=== PATIENT | female | born 1940 | race Caucasian/White ===

== ENCOUNTER → 2018-07-25 12:04 | Outpatient (CLI) | payer MEDICARE, OTHER, SELFPAY ==
--- NOTE | 2018-07-25 | DI.CT.S_ITS ---
PROCEDURE: CT HEAD/BRAIN WO CON INDICATIONS: DYSPNEA TECHNIQUE: Noncontrast 4.5 mm thick angled axial sections acquired from the foramen magnum to the vertex, with coronal and sagittal reformats. For radiation dose reduction, the following was used: automated exposure control, adjustment of mA and/or kV according to patient size. COMPARISON: None. FINDINGS: Image quality: Excellent. CSF spaces: Basal cisterns are patent. No extra-axial fluid collections. The ventricles are symmetric in size and shape. Brain: No intracranial bleeds or masses. There is cerebral volume loss for age, with resultant ventricular and sulcal prominence. There are periventricular and deep white matter chronic small vessel ischemic changes. There is intracranial internal carotid artery atherosclerosis. Skull and face: Calvarium and visualized facial bones appear intact, without suspicious lesions. Sinuses: Visualized sinuses and mastoids are clear. IMPRESSION: Normal head CT for age. Dictated by: Adarsh Plummer M.D. on 07/25/2018 at 11:36 Approved by: Adarsh Plummer M.D. on 07/25/2018 at 11:37
== END ==
PROVIDERS: Visit Provider Physician Assistant
DX: R06.00 Dyspnea, unspecified (principal); R55 Syncope and collapse
CPT/HCPCS: 70450

== ENCOUNTER → 2018-12-16 10:57 | Outpatient (CLI) | payer MEDICARE, OTHER, SELFPAY ==
[2018-12-16 12:52] LABS: Alanine Aminotransferase 30 IU/L (9-52); Albumin 4.3 g/dL (3.5-5.0); Albumin Globulin Ratio 1.3 (1.0-2.8); Alkaline Phosphatase 82 U/L (38-126); Aspartate Aminotransferase 34 IU/L (14-36); BUN Creatinine Ratio 21.4 (6-22); Bilirubin Total 0.8 mg/dL (0.2-1.3); Blood Urea Nitrogen 15 mg/dL (7-17); Calcium 9.2 mg/dL (8.4-10.2); Carbon Dioxide 26 mmol/L (22-32); Chloride 103 mmol/L (98-107); Cholesterol 162 mg/dL (140-199); Estimated Glomerular Filt Rate > 60.0 mL/min (>60); Globulin 3.2 g/dL (1.7-4.1); Glucose 87 mg/dL (80-110); HDL Cholesterol 69 mg/dL (40-60); HEMOLYSIS < 15 (0-50); LDL Cholesterol Calculated 77 mg/dL (<100); Potassium 4.1 mmol/L (3.4-5.1); Sodium 139 mmol/L (137-145); Total Protein 7.5 g/dL (6.3-8.2); Triglycerides 80 mg/dL (35-150)
== END ==
PROVIDERS: Visit Provider Internal Medicine
DX: E78.5 Hyperlipidemia, unspecified (principal)
CPT/HCPCS: 36415; 80053; 80061

== ENCOUNTER 2021-05-30 12:08 | Emergency (ER) | payer MEDICARE, OTHER, SELFPAY ==
[2021-05-30] VITALS (47 sets, daily range): BP systolic 106–156; BP diastolic 63–108; PULSE 47–139; RESP 16–32; TEMP 36.6; O2SAT 92–100; BMI 21.2
--- NOTE | 2021-05-30 12:25 | DI.RAD.S_ITS ---
PROCEDURE: XR CHEST 1V INDICATIONS: shortness of breath TECHNIQUE: One view of the chest was acquired. COMPARISON: [facility], CR, XR CHEST 2 VIEWS, 11/15/2018, 6:46. FINDINGS: Surgical changes and devices: There is a cardiac pacemaker in appropriate position. Lungs and pleura: Small pleural effusions are present bilaterally. There are bibasilar consolidations or atelectasis. Mediastinum: Mediastinal contours appear normal. Heart size is normal. Bones and chest wall: No suspicious bony lesions. Overlying soft tissues appear unremarkable. IMPRESSION: Small pleural effusions with bibasilar consolidations or atelectasis. Dictated by: Jennifer Caputo M.D. on 05/30/2021 at 13:15 Approved by: Jennifer Caputo M.D. on 05/30/2021 at 13:16
[2021-05-30 12:51] LABS: COVID19 -Nasal RAPID Negative (Negative)
[2021-05-30 12:59] LABS: INR 1.6 (0.9-1.3); Prothrombin Time 17.9 SECONDS (10.1-12.7)
[2021-05-30 13:01] LABS: PTT Partial Thromboplastin Tim 36 SECONDS (26.4-36.2)
[2021-05-30 13:03] LABS: Alanine Aminotransferase 42 IU/L (<35); Albumin 3.8 g/dL (3.5-5.0); Albumin Globulin Ratio 1.3 (1.0-2.8); Alkaline Phosphatase 83 U/L (38-126); Aspartate Aminotransferase 52 IU/L (14-36); BUN Creatinine Ratio 18.2 (6-22); Bilirubin Total 1.2 mg/dL (0.2-1.3); Blood Urea Nitrogen 14 mg/dL (7-17); Calcium 9.3 mg/dL (8.4-10.2); Carbon Dioxide 26 mmol/L (22-32); Chloride 105 mmol/L (98-107); Estimated Glomerular Filt Rate > 60.0 mL/min (>60); Globulin 2.9 g/dL (1.7-4.1); Glucose 97 mg/dL (80-110); HEMOLYSIS 19 (0-50); Lactate (Lactic Acid) 1.5 mmol/L (0.7-2.1); Potassium 4.6 mmol/L (3.4-5.1); Sodium 138 mmol/L (137-145); Total Protein 6.7 g/dL (6.3-8.2)
[2021-05-30 13:11] LABS: Add Manual Diff / Slide Review NO; Basophils Absolute Auto 100 /uL (0-100); Basophils Percent Auto 1.1 % (0-2); Eosinophils Absolute Auto 100 /uL (0-450); Eosinophils Percent Auto 1.2 % (2-4); Hematocrit 47.1 % (36-46); Lymphocytes Absolute Auto 2200 /uL (1100-4500); Lymphocytes Percent Auto 32.1 % (25-40); Mean Corpuscular Hemoglobin 30.1 PG (26-34); Mean Corpuscular Volume 94.2 fL (80-100); Monocytes Absolute Auto 700 /uL (0-900); Monocytes Percent Auto 9.8 % (3-14); Neutrophils Absolute Auto 3800 /uL (1500-7000); Neutrophils Percent Auto 55.8 % (50-75); Platelet Count 225 X10^3/uL (150-400); White Blood Cell Count 6.9 X10^3/uL (4.5-11.0)
[2021-05-30 13:12] LABS: NT-proBNP (BNP-Adult 18+) 10000 pg/mL (<450)
--- NOTE | 2021-05-30 14:17 | ED_ITS ---
HPI - SOB/Dyspnea <Alex Willingham PA-C - Last Filed: 05/31/21 12:08> General Chief Complaint: Shortness of Breath/Dyspnea Stated Complaint: sob Time Seen by Provider: 05/30/21 13:46 Source: patient Mode of arrival: Ambulatory Limitations: no limitations History of Present Illness HPI Narrative: Patti presents today with chief complaint of worsening shortness of breath with exertion that has been persistent for the last few weeks. She has past medical history significant for paroxysmal atrial fibrillation, sick sinus syndrome with dual chamber pacemaker in place, and she has and anticoa gulated on Eliquis 5 mg b.i.d.. She has been taking this as prescribed. In early April she flipped into atrial fibrillation and has had shortness of breath with exertion since that time. She had an appointment in late April with her linoleum installer Dr. Chavez at [facility]. He ordered a echocardiogram which showed significant decreased LV function with an estimated LV EF of 25- 30%. This was a significant decrease since her prior which showed normal EF. One week ago she had a scheduled direct current electronic cardioversion which was reported as successful in the procedure note. She reports that she did not have any benefit symptomatic leave from the cardioversion and has been p ersistently short of breath on exertion since this occurred. She denies any significant episode of chest pain but has noted that her lower legs have started to become more swollen. She has had a persistent cough for the last 3 months also. Related Data Previous Rx's Medication Instructions Recorded furosemide 20 mg tablet 20 mg PO QAM 7 Days #7 tab 05/30/21 potassium chloride 10 mEq 10 meq PO DAILY 7 Days #7 cap 05/30/21 capsule,extended release Allergies Allergy/AdvReac Type Severity Reaction Status Date / Time No Known Drug Allergies Allergy Verified 05/30/21 12:26 Patient History <Alex Willingham PA-C - Last Filed: 05/31/21 12:08> Social History Smoking Status: Unknown if ever smoked Smoking Status: Unknown if ever smoked alcohol intake frequency: holidays/special occasions only Substance Use Type: does not use Exam <Alex Willingham PA-C - Last Filed: 05/31/21 12:08> Narrative Exam Narrative: Exam Narrative: Const General: cooperative, healthy appearing, comfortable, no acute distress, well developed and well groomed Nutritional Appearance: average body habitus Orientation: alert and oriented x3 HENMT Head: normal to inspection and atraumatic Ears: hearing grossly normal bilaterally Nose: external nose normal and nares normal Face and sinus: normal facial exam Neck Neck: normal visual inspection and supple Resp Effort & Inspection: normal respiratory effort, able to speak in complete sentences, no audible wheezes, not labored, no nasal flaring and no respiratory distress, clear to auscultation bilaterally Cardiac Tachycardic rate and irregularly irregular rhythm. No obvious murmurs noted. Lower extremities exposed- minimal pitting edema noted bilaterally to anterior shins. No significant calf tenderness. Neuro General: alert, oriented x3, gait normal, tone normal and moves all extremities Cognition: normal cognition Speech: speech normal Gait: normal gait Psych Appearance: grossly normal and well kempt Mental Status: mental status grossly normal Speech and Movement: speech and movement normal Mood: congruent mood Affect: normal affect Initial Vital Signs Initial Vital Signs: Vital Signs Temperature 97.8 F 05/30/21 12:16 Pulse Rate 115 H 05/30/21 12:16 Respiratory Rate 22 05/30/21 12:16 Blood Pressure 126/86 05/30/21 12:16 Pulse Oximetry 100 05/30/21 12:16 <Rob Gustafson DO - Last Filed: 05/31/21 18:56> Initial Vital Signs Initial Vital Signs: Vital Signs Temperature 97.8 F 05/30/21 12:16 Pulse Rate 115 H 05/30/21 12:16 Respiratory Rate 22 05/30/21 12:16 Blood Pressure 126/86 05/30/21 12:16 Pulse Oximetry 100 05/30/21 12:16 Course <Alex Willingham PA-C - Last Filed: 05/31/21 12:08> Course Course Narrative: I spoke with Dr. Gtz with [facility]. We discussed this patient's presentation, workup and her history. He recommended cardioversion here in the emergency department. She would be appropriate to discharge home even if cardioversion fails. He recommended increasing her metoprolol to 50 mg b.i.d. for rate management, potassium 10 mg daily, furosemide 20 mg daily, and 400 mg of magnesium oxide. Orders Ordered: Discontinued Medications Furosemide (Furosemide 40 Mg/4 Ml Vial) 40 mg IV NOW ONE Stop: 05/30/21 15:29 Last Admin: 05/30/21 16:11 Dose: 40 mg Documented by: DAVID Metoprolol Tartrate (Metoprolol Tartrate 5 Mg/5 Ml Inj) 5 mg IV NOW ONE Stop: 05/30/21 15:29 Last Admin: 05/30/21 16:11 Dose: 5 mg Documented by: DAVID Propofol (Propofol 200 Mg/20 Ml Vial) 60 mg 1 mg/kg (60 mg) IV NOW ONE Stop: 05/30/21 19:25 Last Admin: 05/30/21 19:55 Dose: 45 mg Documented by: EBER Vital Signs Vital signs: Vital Signs - 8 hr 05/30/21 12:16 05/30/21 12:17 05/30/21 12:25 Temperature 97.8 F Pulse Rate 115 H 47 L 122 H Respiratory Rate 22 18 Blood Pressure 126/86 126/86 Pulse Oximetry 100 98 99 05/30/21 12:27 05/30/21 12:30 05/30/21 12:41 Temperature Pulse Rate Respiratory Rate Blood Pressure 126/86 125/93 H Pulse Oximetry 98 99 05/30/21 13:00 05/30/21 13:30 05/30/21 14:00 Temperature Pulse Rate 125 H 120 H 108 H Respiratory Rate 23 18 17 Blood Pressure 125/84 131/85 Pulse Oximetry 99 98 97 05/30/21 14:30 05/30/21 15:00 05/30/21 15:41 Temperature Pulse Rate 114 H 129 H 120 H Respiratory Rate 23 18 Blood Pressure 119/79 151/91 H Pulse Oximetry 97 97 05/30/21 15:48 05/30/21 16:00 05/30/21 16:20 Temperature Pulse Rate 134 H 119 H 113 H Respiratory Rate 21 19 19 Blood Pressure 133/101 H 127/108 H 131/103 H Pulse Oximetry 99 97 97 05/30/21 16:30 Temperature Pulse Rate 121 H Respiratory Rate 20 Blood Pressure Pulse Oximetry 96 <Rob Gustafson DO - Last Filed: 05/31/21 18:56> Orders Ordered: Discontinued Medications Furosemide (Furosemide 40 Mg/4 Ml Vial) 40 mg IV NOW ONE Stop: 05/30/21 15:29 Last Admin: 05/30/21 16:11 Dose: 40 mg Documented by: DAVID Metoprolol Tartrate (Metoprolol Tartrate 5 Mg/5 Ml Inj) 5 mg IV NOW ONE Stop: 05/30/21 15:29 Last Admin: 05/30/21 16:11 Dose: 5 mg Documented by: DAVID Propofol (Propofol 200 Mg/20 Ml Vial) 60 mg 1 mg/kg (60 mg) IV NOW ONE Stop: 05/30/21 19:25 Last Admin: 05/30/21 19:55 Dose: 45 mg Documented by: EBER Vital Signs Vital signs: Vital Signs - 8 hr 05/30/21 12:16 05/30/21 12:17 05/30/21 12:25 Temperature 97.8 F Pulse Rate 115 H 47 L 122 H Respiratory Rate 22 18 Blood Pressure 126/86 126/86 Pulse Oximetry 100 98 99 05/30/21 12:27 05/30/21 12:30 05/30/21 12:41 Temperature Pulse Rate Respiratory Rate Blood Pressure 126/86 125/93 H Pulse Oximetry 98 99 05/30/21 13:00 05/30/21 13:30 05/30/21 14:00 Temperature Pulse Rate 125 H 120 H 108 H Respiratory Rate 23 18 17 Blood Pressure 125/84 131/85 Pulse Oximetry 99 98 97 05/30/21 14:30 05/30/21 15:00 05/30/21 15:41 Temperature Pulse Rate 114 H 129 H 120 H Respiratory Rate 23 18 Blood Pressure 119/79 151/91 H Pulse Oximetry 97 97 05/30/21 15:48 05/30/21 16:00 05/30/21 16:20 Temperature Pulse Rate 134 H 119 H 113 H Respiratory Rate 21 19 19 Blood Pressure 133/101 H 127/108 H 131/103 H Pulse Oximetry 99 97 97 05/30/21 16:30 Temperature Pulse Rate 121 H Respiratory Rate 20 Blood Pressure Pulse Oximetry 96 MDM - SOB/Dyspnea <Alex Willingham PA-C - Last Filed: 05/31/21 12:08> Lab Data Result diagrams: 05/30/21 12:40 05/30/21 12:40 Labs: Lab Results 05/30/21 05/30/21 05/30/21 Range/Units 12:21 12:26 12:40 WBC 6.9 (4.5-11.0) X10^3/uL RBC 5.00 (4.0-5.2) X10^6/uL Hgb 15.0 (12.0-16.0) g/dL Hct 47.1 H (36-46) % MCV 94.2 (80-100) fL MCH 30.1 (26-34) PG MCHC 32.0 (30-36) % RDW 15.0 H (11.6-14.8) % Plt Count 225 (150-400) X10^3/uL Neut % (Auto) 55.8 (50-75) % Lymph % (Auto) 32.1 (25-40) % Clinch % (Auto) 9.8 (3-14) % Eos % (Auto) 1.2 L (2-4) % Baso % (Auto) 1.1 (0-2) % Neut # (Auto) 3800 (9907-6385) /uL Lymph # (Auto) 2200 (6950-4636) /uL Clinch # (Auto) 700 (0-900) /uL Eos # (Auto) 100 (0-450) /uL Baso # (Auto) 100 (0-100) /uL PT (10.1-12.7) SECONDS INR (0.9-1.3) APTT (26.4-36.2) SECONDS Sodium (137-145) mmol/L Potassium (3.4-5.1) mmol/L Chloride (98-107) mmol/L Carbon Dioxide (22-32) mmol/L BUN (7-17) mg/dL Creatinine (0.52-1.04) mg/dL Estimated GFR (>60) mL/min BUN/Creatinine Ratio (6-22) Glucose (80-110) mg/dL Lactate (0.7-2.1) mmol/L Calcium (8.4-10.2) mg/dL Total Bilirubin (0.2-1.3) mg/dL AST (14-36) IU/L ALT (<35) IU/L Alkaline Phosphatase (38-126) U/L Total Creatine Kinase 33 (30-135) U/L CK-MB (CK-2) TNP CK-MB (CK-2) Rel Index TNP Troponin I < 0.012 (0.01-0.034) ng/mL NT-Pro-B Natriuret Pep (<450) pg/mL Total Protein (6.3-8.2) g/dL Albumin (3.5-5.0) g/dL Globulin (1.7-4.1) g/dL Albumin/Globulin Ratio (1.0-2.8) SARS-CoV-2 (PCR) Negative (Negative) 05/30/21 05/30/21 05/30/21 Range/Units 12:40 12:40 12:40 WBC (4.5-11.0) X10^3/uL RBC (4.0-5.2) X10^6/uL Hgb (12.0-16.0) g/dL Hct (36-46) % MCV (80-100) fL MCH (26-34) PG MCHC (30-36) % RDW (11.6-14.8) % Plt Count (150-400) X10^3/uL Neut % (Auto) (50-75) % Lymph % (Auto) (25-40) % Clinch % (Auto) (3-14) % Eos % (Auto) (2-4) % Baso % (Auto) (0-2) % Neut # (Auto) (6141-4503) /uL Lymph # (Auto) (9949-1000) /uL Clinch # (Auto) (0-900) /uL Eos # (Auto) (0-450) /uL Baso # (Auto) (0-100) /uL PT 17.9 H (10.1-12.7) SECONDS INR 1.6 H (0.9-1.3) APTT 36 (26.4-36.2) SECONDS Sodium 138 (137-145) mmol/L Potassium 4.6 (3.4-5.1) mmol/L Chloride 105 (98-107) mmol/L Carbon Dioxide 26 (22-32) mmol/L BUN 14 (7-17) mg/dL Creatinine 0.77 (0.52-1.04) mg/dL Estimated GFR > 60.0 (>60) mL/min BUN/Creatinine Ratio 18.2 (6-22) Glucose 97 (80-110) mg/dL Lactate 1.5 (0.7-2.1) mmol/L Calcium 9.3 (8.4-10.2) mg/dL Total Bilirubin 1.2 (0.2-1.3) mg/dL AST 52 H (14-36) IU/L ALT 42 H (<35) IU/L Alkaline Phosphatase 83 (38-126) U/L Total Creatine Kinase (30-135) U/L CK-MB (CK-2) CK-MB (CK-2) Rel Index Troponin I (0.01-0.034) ng/mL NT-Pro-B Natriuret Pep 32585 H (<450) pg/mL Total Protein 6.7 (6.3-8.2) g/dL Albumin 3.8 (3.5-5.0) g/dL Globulin 2.9 (1.7-4.1) g/dL Albumin/Globulin Ratio 1.3 (1.0-2.8) SARS-CoV-2 (PCR) (Negative) Point of Care Testing Test Results Not applicable MDM Narrative Medical decision making narrative: Differential diagnosis includes acute coronary syndrome, pulmonary embolism, pneumonia, infection, electrolyte abnormalities. She does not report any significant chest pain, diaphoresis, nausea but does endorse exertional dyspnea. EKG does not suggest any evidence o f acute ischemia at this time. Troponin and CK-MB are within normal limits. She has an elevation in her BNP and has a known history of decompensated heart failure with last ejection fraction noted to be 25-30%. Discussion of whether hospitalization or discharge with close cardiology follow-up was had with the patient. She expresses a strong desire to go home and follow-up as an outpatient. After consultation with Cardiology, I think that this is appropriate as long as she adheres to strict ER return precautions which were discussed with her and her . Furosemide and potassium was prescribed for the patient. She reports that she is already taking magnesium supplementation at 400 mg daily. So this will not be prescribed at this time. Patient verbalizes understanding and agrees to plan and has no further concerns at this time. Thank you A [id number] system was used with the dictation of this note. Please disregard any spelling or grammatical errors. <Rob Gustafson DO - Last Filed: 05/31/21 18:56> Lab Data Labs: Lab Results 05/30/21 05/30/21 05/30/21 Range/Units 12:21 12:26 12:40 WBC 6.9 (4.5-11.0) X10^3/uL RBC 5.00 (4.0-5.2) X10^6/uL Hgb 15.0 (12.0-16.0) g/dL Hct 47.1 H (36-46) % MCV 94.2 (80-100) fL MCH 30.1 (26-34) PG MCHC 32.0 (30-36) % RDW 15.0 H (11.6-14.8) % Plt Count 225 (150-400) X10^3/uL Neut % (Auto) 55.8 (50-75) % Lymph % (Auto) 32.1 (25-40) % Clinch % (Auto) 9.8 (3-14) % Eos % (Auto) 1.2 L (2-4) % Baso % (Auto) 1.1 (0-2) % Neut # (Auto) 3800 (3341-5887) /uL Lymph # (Auto) 2200 (0409-6917) /uL Clinch # (Auto) 700 (0-900) /uL Eos # (Auto) 100 (0-450) /uL Baso # (Auto) 100 (0-100) /uL PT (10.1-12.7) SECONDS INR (0.9-1.3) APTT (26.4-36.2) SECONDS Sodium (137-145) mmol/L Potassium (3.4-5.1) mmol/L Chloride (98-107) mmol/L Carbon Dioxide (22-32) mmol/L BUN (7-17) mg/dL Creatinine (0.52-1.04) mg/dL Estimated GFR (>60) mL/min BUN/Creatinine Ratio (6-22) Glucose (80-110) mg/dL Lactate (0.7-2.1) mmol/L Calcium (8.4-10.2) mg/dL Total Bilirubin (0.2-1.3) mg/dL AST (14-36) IU/L ALT (<35) IU/L Alkaline Phosphatase (38-126) U/L Total Creatine Kinase 33 (30-135) U/L CK-MB (CK-2) TNP CK-MB (CK-2) Rel Index TNP Troponin I < 0.012 (0.01-0.034) ng/mL NT-Pro-B Natriuret Pep (<450) pg/mL Total Protein (6.3-8.2) g/dL Albumin (3.5-5.0) g/dL Globulin (1.7-4.1) g/dL Albumin/Globulin Ratio (1.0-2.8) SARS-CoV-2 (PCR) Negative (Negative) 05/30/21 05/30/21 05/30/21 Range/Units 12:40 12:40 12:40 WBC (4.5-11.0) X10^3/uL RBC (4.0-5.2) X10^6/uL Hgb (12.0-16.0) g/dL Hct (36-46) % MCV (80-100) fL MCH (26-34) PG MCHC (30-36) % RDW (11.6-14.8) % Plt Count (150-400) X10^3/uL Neut % (Auto) (50-75) % Lymph % (Auto) (25-40) % Clinch % (Auto) (3-14) % Eos % (Auto) (2-4) % Baso % (Auto) (0-2) % Neut # (Auto) (7922-7607) /uL Lymph # (Auto) (2529-7711) /uL Clinch # (Auto) (0-900) /uL Eos # (Auto) (0-450) /uL Baso # (Auto) (0-100) /uL PT 17.9 H (10.1-12.7) SECONDS INR 1.6 H (0.9-1.3) APTT 36 (26.4-36.2) SECONDS Sodium 138 (137-145) mmol/L Potassium 4.6 (3.4-5.1) mmol/L Chloride 105 (98-107) mmol/L Carbon Dioxide 26 (22-32) mmol/L BUN 14 (7-17) mg/dL Creatinine 0.77 (0.52-1.04) mg/dL Estimated GFR > 60.0 (>60) mL/min BUN/Creatinine Ratio 18.2 (6-22) Glucose 97 (80-110) mg/dL Lactate 1.5 (0.7-2.1) mmol/L Calcium 9.3 (8.4-10.2) mg/dL Total Bilirubin 1.2 (0.2-1.3) mg/dL AST 52 H (14-36) IU/L ALT 42 H (<35) IU/L Alkaline Phosphatase 83 (38-126) U/L Total Creatine Kinase (30-135) U/L CK-MB (CK-2) CK-MB (CK-2) Rel Index Troponin I (0.01-0.034) ng/mL NT-Pro-B Natriuret Pep 84186 H (<450) pg/mL Total Protein 6.7 (6.3-8.2) g/dL Albumin 3.8 (3.5-5.0) g/dL Globulin 2.9 (1.7-4.1) g/dL Albumin/Globulin Ratio 1.3 (1.0-2.8) SARS-CoV-2 (PCR) (Negative) Point of Care Testing Test Results Not applicable Discharge Plan Departure Patient Disposition: Home Clinical Impression: Atrial fibrillation Qualifiers: Atrial fibrillation type: unspecified Qualified Code(s): I48.91 - Unspecified atrial fibrillation Congestive heart failure Qualifiers: Heart failure type: unspecified Heart failure chronicity: unspecified Qualified Code(s): I50.9 - Heart failure, unspecified Activity Restrictions/Additional Instructions: It was very nice to meet you both this evening. After consultation with your linoleum installer, we will increase your metoprolol to 50 mg twice daily. They also would like us to add a diuretic in addition to some potassium supplementation. Please take these as directed. Please give Dr. Metcalf office a call 1st thing on Wednesday to schedule a follow-up appointment. If you experience chest pain, worsening shortness of breath, or have any additional concerns or complaints do not hesitate to return for re-evaluation. Thank you again Alex Willingham PA-C Prescriptions: New furosemide 20 mg tablet 20 mg PO QAM 7 Days Qty: 7 RF: 0 potassium chloride 10 mEq capsule, extended release 10 meq PO DAILY 7 Days Qty: 7 RF: 0 Referrals: Jessica Leyva PA-C [Primary Care Provider] - Justice Chavez MD [Physician] - As soon as possible <Rob Gustafson DO - Last Filed: 05/31/21 18:56> Cosign ED Attending Cosignature Attestation: I was immediately available in the department for consultation. This documentation has been reviewed and I agree with assessment and plan. Supervised by Rob Gustafson, DO
[2021-05-30 14:56] LABS: Creatine Kinase 33 U/L (30-135)
[2021-05-30 15:09] LABS: Troponin I < 0.012 ng/mL (0.01-0.034)
[2021-05-30] MEDS: METOPROLOL TARTRATE 5 MG/5 ML INJ IV (16:11)
[2021-05-30] MEDS: FUROSEMIDE 40 MG/4 ML VIAL IV (16:11)
[2021-05-30] MEDS: propofoL 200 MG/20 ML VIAL 60 MG IV (19:55)
== END 2021-05-30 21:31 | disposition home or self-care (01) ==
PROVIDERS: Emergency Medicine; Emergency Provider Physician Assistant; PCP Student in an Organized Health Care Education/Training Program
DX: I48.91 Unspecified atrial fibrillation (principal); Z79.01 Long term (current) use of anticoagulants; I50.9 Heart failure, unspecified; Z20.822 Contact with and (suspected) exposure to COVID-19
CPT/HCPCS: 36415; 71045; 80053; 82550; 83605; 83880; 84484; 85025; 85610; 85730; 87635; 92960; 93005; 93010; 96374; 96375; 99152; 99285; C9803; J1940; J2704